=== PATIENT | male | born 1980 | race Caucasian/White ===

== ENCOUNTER 2018-07-26 14:33 | Inpatient (IN) | payer MEDICAID ==
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
[2018-07-26] MEDS ORDERED: IOPAMIDOL (ISOVUE-300) 100 ML BTL ONE (15:38)
[2018-07-26 15:53] LABS: PLATELET COUNT 274 10^3/uL (150-400)
[2018-07-26 16:03] LABS: INR 0.94 (0.83-1.16); PROTIME(PATIENT) 12.2 SEC (12.0-15.0)
[2018-07-26] MEDS ORDERED: fentaNYL 100 MCG/2 ML INJ ONE (16:10)
[2018-07-26] MEDS ORDERED: fentaNYL 100 MCG/2 ML INJ IVP ONE ×2 (16:13→16:48)
[2018-07-26] MEDS ORDERED: NALOXONE HCL 0.4 MG/ML INJ IVP PRN (16:42)
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
[2018-07-26] MEDS ORDERED: DEXAMETHASONE 10 MG/ML VIAL IVP SCH (17:15)
[2018-07-26] MEDS ORDERED: SKIN ADHESIVE (DERMABOND) 1 EACH TP ONE (17:21)
[2018-07-26] MEDS ORDERED: DEXAMETHASONE 10 MG/ML VIAL ONE (17:40)
[2018-07-26] MEDS ORDERED: FLUMAZENIL 0.5 MG/5 ML MDV IVP PRN (20:05)
[2018-07-26] MEDS ORDERED: HYDROCOD/APAP 7.5/325 IN 15ML UDCUP PO PRN (20:06)
[2018-07-26] MEDS: ONDANSETRON 4 MG/2 ML VIAL IVP PRN (21:42)
[2018-07-26] MEDS: FAMOTIDINE 20 MG/NACL 50 ML IV SCH (22:15)
[2018-07-26] MEDS: KETOROLAC 15 MG/1 ML SDV IVP PRN (22:27)
[2018-07-26] MEDS: LORazepam 2 MG/ML INJ IVP PRN (22:28)
[2018-07-27] MEDS: LORazepam 2 MG/ML INJ IVP PRN ×7 (02:56→20:58)
[2018-07-27] MEDS: ONDANSETRON 4 MG/2 ML VIAL IVP PRN ×2 (03:01→20:58)
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
[2018-07-27] MEDS: KETOROLAC 15 MG/1 ML SDV IVP PRN ×2 (06:25→20:58)
[2018-07-27] MEDS: ENOXAPARIN 40 MG/0.4 ML SYR SC SCH (09:00)
[2018-07-27] MEDS: FAMOTIDINE 20 MG/NACL 50 ML IV SCH ×2 (09:00→20:56)
[2018-07-27] MEDS ORDERED: DEXAMETHASONE 4 MG/ML VIAL IVP SCH (09:00)
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
[2018-07-27] MEDS: THIAMINE HCL 500 MG in NS 100 ML IV SCH (09:31)
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
--- NOTE | 2018-07-27 14:43 | SOAPPROG ---
SOAP Progress Note Assessment/Plan: Assessment:Pt doing well. No respiratory symptoms. He can start to eat and should be read to be discharged tomorrow am Plan: 07/27/18 14:38 Pt feelin better. He told RN he wanted to leave AMA because of frustration regarding his liquid diet. Subjective: PT feeling alot better. He is anxoius to go back to the retirement. Objective: Vital Signs Temp Pulse Resp BP Pulse Ox 36.7 C 72 19 139/80 H 98 07/27/18 12:00 07/27/18 13:00 07/27/18 13:00 07/27/18 13:00 07/27/18 13:00 07/26/18 07/27/18 07/28/18 05:59 05:59 05:59 Intake Total 2650 Output Total 1300 100 Balance 1350 -100 PT 12.2 SEC (12.0-15.0) 07/26/18 15:40 INR 0.94 (0.83-1.16) 07/26/18 15:40 PT walking in [place]ons. Voice clear. Neck has no visible asymetry and minimal tenderness on the right side. OC/OP normal ICD10 Worksheet Patient Problems: Problems Problem Status Onset Head injury Acute Subcutaneous air Acute Vocal cords swelling Acute
[2018-07-27] MEDS ORDERED: FLUoxetine 20 MG CAP PO SCH (18:45)
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
[2018-07-27] MEDS: busPIRone 15 MG TAB PO SCH (20:57)
[2018-07-27] MEDS: ZIPRASIDONE HCL 20 MG CAP PO SCH (20:57)
[2018-07-27] MEDS ORDERED: traZODone 100 MG TAB PO SCH (21:00)
[2018-07-27] MEDS: NICOTINE 14 MG/24 HR PATCH TD SCH (21:02)
[2018-07-27] MEDS: FLUoxetine 20 MG CAP PO SCH (22:06)
[2018-07-28] MEDS: ONDANSETRON 4 MG/2 ML VIAL IVP PRN ×2 (07:14→12:32)
[2018-07-28] MEDS: FAMOTIDINE 20 MG/NACL 50 ML IV SCH (07:46)
[2018-07-28] MEDS: FLUoxetine 20 MG CAP PO SCH (07:48)
[2018-07-28] MEDS: ZIPRASIDONE HCL 20 MG CAP PO SCH (07:49)
[2018-07-28] MEDS: ENOXAPARIN 40 MG/0.4 ML SYR SC SCH (07:50)
[2018-07-28] MEDS: busPIRone 15 MG TAB PO SCH (07:50)
[2018-07-28] MEDS: NICOTINE 14 MG/24 HR PATCH TD SCH (07:56)
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
[2018-07-28] MEDS: THIAMINE HCL 500 MG in NS 100 ML IV SCH (09:32)
[2018-07-28] MEDS ORDERED: HYDROmorphONE/DILAUDID 2 MG TAB PO PRN (11:27)
--- NOTE | 2018-07-28 11:32 | ASMTCMCOM ---
CM Note CM Note Notes: Cage assessment was completed with pt. He reports he can make his follow-up appt with [facility] but requests CM to schedule PCP. CM scheduled [facility] Appt for Monday 07/31 at 12:20. Pt provided with information to schedule an appt at [facility] and provided with education on Walk-in crisis clinic/ crisis numbers. CM also provided education on abstaining from ETOH use. Plan: [facility] once medically stable Date Signed: 07/28/2018 11:31 AM Electronically Signed By:GERALD Fan
--- NOTE | 2018-07-28 11:34 | TRAUMAPNT ---
Trauma Tertiary Progress Note New Findings: No new findings Assessment/Plan: PAD#2 Assessment: C/o vertigo but no other complaints. Notes that voice is improving but not yet normal Plan: Meds adjusted will get f/u CT head Subjective: i have vertigo no stool yet Objective: Vital Signs Temp Pulse Resp BP Pulse Ox 36.6 C 69 12 120/74 92 07/28/18 08:00 07/28/18 09:55 07/28/18 09:55 07/28/18 09:55 07/28/18 09:55 07/27/18 07/28/18 07/29/18 05:59 05:59 05:59 Intake Total 2650 5054 Output Total 1300 1285 Balance 1350 3769 PT 12.2 SEC (12.0-15.0) 07/26/18 15:40 INR 0.94 (0.83-1.16) 07/26/18 15:40 - C-Spine Clearance Cervical Spine Cleared: Yes Provider who Cleared Cervical Spine: Jae Physical Exam - Physical Exam General Appearance: WD/WN, alert, no apparent distress EENT: other (Has left eye ecchymosis, left upper lid lac will need sutures out in 3-5 days, right forehead lac clean and dry.) Neck: non-tender, full range of motion, supple Respiratory: chest non-tender, lungs clear, normal breath sounds Cardiac/Chest: regular rate, rhythm Abdomen: normal bowel sounds, non-tender, soft Male Genitalia: deferred Rectal: deferred Back: Normal inspection Skin: normal color, warm/dry Extremities: normal range of motion, non-tender Neuro/Psych: no motor/sensory deficits, alert, normal mood/affect, oriented x 3 Time Spent w/Patient (minutes): 25
[2018-07-28] MEDS ORDERED: KETOROLAC 15 MG/1 ML SDV IVP SCH (12:00)
[2018-07-28] MEDS ORDERED: ACETAMINOPHEN 500 MG TAB PO SCH (14:00)
[2018-07-28 14:02] VITALS: BP 112/67
--- NOTE | 2018-07-28 15:04 | ASMTLACE ---
LACE Length of stay for Answers: 1 day current admission Acuity / Level of Answers: Yes Care: Did the patient have an inpatient admission? # of Emergency department Answers: 1-2 visits in the last 6 months Social determinants Answers: History of substance abuse (ETOH, street drugs, prescription drugs, etc.) Homelessness (street, longterm) Mental health diagnosis (anxiety, depression, pers onality disorders, etc.) Lack of community resources and/or lack of social support (no pcp, lives alone, transportation, dada d) Score: 18 Date Signed: 07/28/2018 03:04 PM Electronically Signed By:GERALD Fan
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
[2018-07-28] MEDS ORDERED: FAMOTIDINE 20 MG TAB PO SCH (21:00)
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
[2018-07-29] MEDS ORDERED: THIAMINE HCL 100 MG TAB PO SCH (20:05)
== END 2018-07-28 17:55 | disposition home or self-care (01) | DRG 143 ==
LOC: EDUNIT# → F2N 17:58
PROVIDERS: ADMIT Surgery; ATTEND Surgery
PROC: 0HQ1XZZ Repair Face Skin, External Approach (ICD-10-PCS; principal; 2018-07-26)
PROC: 09JY8ZZ Inspection of Sinus, Via Natural or Artificial Opening Endoscopic (ICD-10-PCS; 2018-07-26)
DX: T79.7XXA Traumatic subcutaneous emphysema, initial encounter (principal); S12.8XXA Fracture of other parts of neck, initial encounter; S01.81XA Laceration without foreign body of other part of head, initial encounter; S01.112A Laceration without foreign body of left eyelid and periocular area, initial encounter; F10.220 Alcohol dependence with intoxication, uncomplicated; K75.9 Inflammatory liver disease, unspecified; S05.12XA Contusion of eyeball and orbital tissues, left eye, initial encounter; S10.0XXA Contusion of throat, initial encounter; S63.282A Dislocation of proximal interphalangeal joint of right middle finger, initial encounter; Y00.XXXA Assault by blunt object, initial encounter; F10.239 Alcohol dependence with withdrawal, unspecified; F41.9 Anxiety disorder, unspecified; Y90.8 Blood alcohol level of 240 mg/100 ml or more; Z59.0 Homelessness; F31.9 Bipolar disorder, unspecified
CPT/HCPCS: 82435-PO; 82565-PO; 82947-PO; 84132-PO; 84295-PO; 84520-PO; 85014-ER; 92523-GN; 92610-GN; 96374; 97116-GP; 97161-GP; 97165-GO; 97530-GO; G0480; J1100; J1650; J1885; J2060; J2270; J2405; J3010; J3411; Q9967

== ENCOUNTER 2018-08-24 12:11 | Emergency (ER) | payer MEDICAID ==
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
[2018-08-24 12:21] VITALS: BP 113/89
== END 2018-08-24 12:51 ==
LOC: EDUNIT#
PROC: 0HQ0XZZ Repair Scalp Skin, External Approach (ICD-10-PCS; principal; 2018-08-24)
DX: S01.01XA Laceration without foreign body of scalp, initial encounter (principal); S60.221A Contusion of right hand, initial encounter; W22.8XXA Striking against or struck by other objects, initial encounter; Y92.810 Car as the place of occurrence of the external cause; Y93.9 Activity, unspecified; Y99.9 Unspecified external cause status

== ENCOUNTER 2018-08-26 19:31 | Emergency (ER) | payer MEDICAID ==
--- NOTE | 2018-08-26 19:34 | EDPHY ---
H & P Time Seen by Provider: 08/26/18 19:35 HPI/ROS: CHIEF COMPLAINT: Alcohol intoxication HISTORY OF PRESENT ILLNESS: The patient is a 38-year-old homeless alcoholic man who comes to the emergency department for intoxication. He was at hotel intoxicated and EMS was called. He would not walk for them and so was brought here. He has no complaints. He is able to walk. He has an old wound to his scalp with celina in place. No other signs of injury. He does have swelling to his right middle finger which she states has been there for several weeks. He denies injuring it today. Severity: Moderate Modifying factors: None REVIEW OF SYSTEMS: Constitutional: denies: chills, fever, recent illness, recent injury EENTM: denies: blurred vision, double vision, nose congestion Respiratory: denies: cough, shortness of breath Cardiac: denies: chest pain, irregular heart rate, lightheadedness, palpitations Gastrointestinal/Abdominal: denies: abdominal pain, diarrhea, nausea, vomiting, blood streaked stools Genitourinary: denies: dysuria, frequency, hematuria, pain Musculoskeletal: denies: joint pain, muscle pain Skin: See above Neurological: denies: headache, numbness, paresthesia, tingling, dizziness, weakness Hematologic/Lymphatic: denies: blood clots, easy bleeding, easy bruising Immunologic/allergic: denies: HIV/AIDS, transplant 10 systems reviewed and negative except as noted EXAM: GENERAL: Disheveled, no distress HEAD: Atraumatic, normocephalic. EYES: Pupils equal round and reactive to light, extraocular movements intact, sclera anicteric, conjunctiva are normal. ENT: TMs normal, nares patent, oropharynx clear without exudates. Moist mucous membranes. NECK: Normal range of motion, supple without lymphadenopathy or JVD. LUNGS: Breath sounds clear to auscultation bilaterally and equal. No wheezes rales or rhonchi. HEART: Regular rate and rhythm without murmurs, rubs or gallops. ABDOMEN: Soft, nontender, normoactive bowel sounds. No guarding, no rebound. No masses appreciated. BACK: No CVA tenderness, no spinal tenderness, step-offs or deformities EXTREMITIES: Normal range of motion, no pitting or edema. No clubbing or cyanosis. NEUROLOGICAL: Cranial nerves II through XII grossly intact. Slightly slurred speech, slightly unstable gait. 5/5 strength, normal movement in all extremities, normal sensation, normal reflexes PSYCH: Normal mood, normal affect. SKIN: Warm, dry, normal turgor, no visible rashes or lesions. Source: Patient, EMS Exam Limitations: Intoxication - Medical/Surgical History Hx Asthma: No Hx Chronic Respiratory Disease: No Hx Diabetes: No Hx Cardiac Disease: No Hx Renal Disease: No Hx Cirrhosis: Yes Hx Alcoholism: Yes Hx HIV/AIDS: No Hx Splenectomy or Spleen Trauma: No Other PMH: HAND SURG, BIPOLAR, ANXIETY, PSYCHOSIS, PARANOIA, ETOH INDUCED HEPATITIS, LOWER BACK SURG, HIP BONE SPUR - Family History Significant Family History: No pertinent family hx - Social History Smoking Status: Current every day smoker Alcohol Use: Heavy Constitutional: Initial Vital Signs Temperature (C) 36.6 C 08/26/18 19:34 Heart Rate 82 08/26/18 19:34 Respiratory Rate 18 08/26/18 19:34 Blood Pressure 112/71 08/26/18 19:34 O2 Sat (%) 93 08/26/18 19:34 O2 Delivery Mode Room Air Allergies/Adverse Reactions: No Known Allergies Allergy (Unverified 12/17/17 06:50) Home Medications: Medication Instructions Recorded FLUoxetine [Prozac 20 MG (*)] 20 mg PO DAILY 07/26/18 Ziprasidone HCl [Geodon] 60 mg PO DAILY 07/26/18 busPIRone [Buspar (*)] 15 mg PO BID 07/26/18 traZODone [traZODONE 100MG (*)] 200 mg PO HS 07/26/18 Acetaminophen [Tylenol ES 500 mg 1,000 mg PO Q8HRS tab 07/28/18 (*)] Ketorolac Tromethamine [Toradol 1 tab PO Q6 5 Days tab 07/28/18 10mg tab] Medical Decision Making ED Course/Re-evaluation: The patient is ambulatory here. [facility]. Will transfer him there. Did find x-ray from 2 days ago of his right hand with no obvious fracture of his finger. Differential Diagnosis: Partial list of the Differential diagnosis considered include but were not limited to; alcohol intoxication, polysubstance abuse and although unlikely based on the history and physical exam, I also considered trauma, infection, head injury. - Data Points Medications Given: Discontinued Medications Chlordiazepoxide (Librium 25 Mg Prepack#6) 1 btl TAKEHOME EDNOW ONE Stop: 08/26/18 19:46 Last Admin: 08/26/18 19:47 Dose: 1 btl Departure - Departure Disposition: Home, Routine, Self-Care Clinical Impression: Alcoholic intoxication Qualifiers: Complication of substance-induced condition: uncomplicated Qualified Code(s): F10.920 - Alcohol use, unspecified with intoxication, uncomplicated Condition: Fair Instructions: Alcohol Intoxication (ED) Referrals: NONE *PRIMARY CARE P,. [Primary Care Provider] - As per Instructions [facility],. [Clinic] - As per Instructions
[2018-08-26 19:37] VITALS: BP 112/71
[2018-08-26] MEDS ORDERED: CHLORDIAZEPOXIDE 25MG PREPK#6 BTL TAKEHOME ONE (19:45)
== END 2018-08-26 19:58 | disposition home or self-care (01) ==
LOC: EDUNIT#
DX: F10.920 Alcohol use, unspecified with intoxication, uncomplicated (principal); F17.200 Nicotine dependence, unspecified, uncomplicated; Z59.0 Homelessness

== ENCOUNTER 2018-09-11 17:24 | Emergency (ER) | payer MEDICAID ==
[2018-09-11] MEDS ORDERED: IBUPROFEN 800 MG TAB PO ONE (17:53)
== END 2018-09-11 18:10 | disposition home or self-care (01) ==
DX: S63.282A Dislocation of proximal interphalangeal joint of right middle finger, initial encounter (principal); M20.021 Boutonniere deformity of right finger(s); M20.011 Mallet finger of right finger(s); Y04.0XXA Assault by unarmed brawl or fight, initial encounter